=== PATIENT | male | born 1965 | race Caucasian/White ===

== ENCOUNTER 2017-10-19 10:50 | Day surgery (SDC) | payer BC ==
[~2017-10-19] VITALS: Ht 177.8 cm; Wt 90.3 kg
[2017-10-19] MEDS ORDERED: simvastatin PO (11:13)
[2017-10-19] MEDS ORDERED: lisinopril PO (11:13)
[2017-10-19] MEDS ORDERED: LACTATED RINGERS 1,000 ML IV SCH (11:15)
[2017-10-19 11:20] VITALS: BP 150/101
[2017-10-19] MEDS ORDERED: PROPOFOL 10 MG/ML, 20ML ONE ×3 (11:26→11:31)
[2017-10-19] MEDS ORDERED: CEFAZOLIN 1,000 MG ONE (11:26)
[2017-10-19] MEDS ORDERED: LABETALOL 5MG/ML, 20ML IV PRN (11:30)
[2017-10-19] MEDS ORDERED: ONDANSETRON 2MG/ML, 2ML IV PRN (11:30)
[2017-10-19] MEDS ORDERED: ACETAMINOPHEN 325 MG TABLET PO PRN (11:30)
[2017-10-19] MEDS ORDERED: EPHEDRINE 50 MG/ML, 1ML IVPush PRN (11:30)
[2017-10-19] MEDS ORDERED: ALBUTEROL SULFATE 2.5 MG/3 ML NPPB PRN (11:30)
[2017-10-19] MEDS ORDERED: MEPERIDINE/PF 25MG/0.5ML IVPush PRN (11:30)
[2017-10-19] MEDS ORDERED: METOPROLOL 1 MG/ML, 5ML IV PRN (11:30)
[2017-10-19] MEDS ORDERED: OXYcodone 5 MG/5 ML ORAL.SOL UDC PO PRN (11:30)
[2017-10-19] MEDS ORDERED: FENTANYL PF 100 MCG/2ML IV PRN (11:30)
[2017-10-19] MEDS ORDERED: hydrALAzine 20 MG/ML, 1ML IV PRN (11:30)
== END 2017-10-19 14:00 | disposition home or self-care (01) ==
LOC: OUT 10:50
PROVIDERS: ATTEND Internal Medicine
DX: K63.5 Polyp of colon (principal); K63.89 Other specified diseases of intestine; D36.10 Benign neoplasm of peripheral nerves and autonomic nervous system, unspecified; I10 Essential (primary) hypertension; E78.5 Hyperlipidemia, unspecified; Z72.89 Other problems related to lifestyle; Z79.899 Other long term (current) drug therapy
CPT/HCPCS: 45385; 45392; 88172; 88173; 88305; J0690; J2704; J7120

== ENCOUNTER 2018-10-05 06:42 | Day surgery (SDC) | payer BC ==
[~2018-10-05] VITALS: Ht 177.8 cm; Wt 88.1 kg
[2018-10-05 08:08] VITALS: BP 122/78
== END 2018-10-05 13:30 | disposition home or self-care (01) ==
LOC: OUT 06:42
PROVIDERS: ATTEND Orthopaedic Surgery
DX: S46.211A Strain of muscle, fascia and tendon of other parts of biceps, right arm, initial encounter (principal); F15.90 Other stimulant use, unspecified, uncomplicated; J30.2 Other seasonal allergic rhinitis; E11.9 Type 2 diabetes mellitus without complications; I10 Essential (primary) hypertension; Z72.89 Other problems related to lifestyle; Z79.84 Long term (current) use of oral hypoglycemic drugs; X58.XXXA Exposure to other specified factors, initial encounter; Y93.89 Activity, other specified; Y92.89 Other specified places as the place of occurrence of the external cause; Y99.8 Other external cause status
CPT/HCPCS: 24342; 64415; 82962; J0171; J0690; J1100; J2250; J2370; J2405; J2704; J3010; J3490; J7120